=== PATIENT | male | born 2000 | race Caucasian/White ===

== ENCOUNTER 2025-08-27 10:45 | Emergency (ER) | payer MEDICAID ==
[~2025-08-27] VITALS: Ht 188 cm; Wt 116.0 kg
[2025-08-27 10:58] VITALS: BP 150/89; PULSE 100; TEMP 98.2; O2SAT 98
[2025-08-27] MEDS ORDERED: ketorolac trometh 15mg/ml vial 15 MG/ML ML IM ONE (12:50)
[2025-08-27] MEDS: ketorolac trometh 30MG/ML vial 30 MG/ML VIAL IM ONE (13:01)
[2025-08-27] MEDS ORDERED: CYCL-1 PO (13:19)
--- NOTE | 2025-08-27 13:20 | Physician Documentation ---
History of Present Illness ~ Chief Complaint: Back Pain Stated Complaint: BACK PAIN Time Seen by MD: 11:22 HPI Patient is a very pleasant 25-year-old male that presents to the emergency department for evaluation of 2 days of low back pain. Patient reports he was sleeping a woke up with back pain. Patient reports pain in his lower back bilaterally with some radiation of pain down into his left buttock. Patient denies any incontinence of bowel or bladder any perineal numbness any numbness or tingling in his lower extremities or upper extremities this time. Patient denies fever chills nausea vomiting diarrhea at this time. Patient denies any other symptoms at this time. Medication Reconciliation Allergies: Coded Allergies: No Known Allergies (Unverified , 08/27/25) Review of Systems ROS As stated above in the HPI, otherwise all systems are reviewed and negative. Physical Exam Physical Exam Vital Signs: Temperature: 98.2, Source: Temporal, Heart Rate: 100, Respiratory Rate: 16, BP: 150/89, Pulse Oximetry: 98, Weight: 116.000 Oxygen Flow Rate: 0 Physical Exam VITALS: Reviewed and as above. GENERAL: Alert, no apparent distress. HEENT: Normocephalic, atraumatic, PERRL, EOMI, dry mucosa, no erythema RESPIRATORY: Lungs clear, normal breath sounds, no respiratory distress. CHEST: No accessory muscle use, no retractions CV: Regular rate, rhythm, no edema, no murmur, No: JVD GI: Soft, non-tender, bowels sounds present, no rebound, guarding, or rigidity BACK: No CVA tenderness, or swelling MUSCULOSKELETAL No deformities, no edema, pain with palpation to the lumbosacral region bilaterally, positive straight leg raise on the left side noted during examination. SKIN: Warm and dry, no rash NEURO: Oriented x4, No motor or sensory deficit PSYCH: Normal mood and affect, no agitation Progress Results/Orders Results/Orders Completed Orders - MARY SINGH Ketorolac Trometh 15mg/Ml Vial (Toradol (08/27/25 12:50) Acetaminophen 325mg Tablet (Tylenol Tabl (08/27/25 12:50) Ketorolac Trometh 30mg/Ml Vial (Toradol (08/27/25 12:50) Medications Received in ER Medications (Trade) Dose Ordered Sig/Rigo Route PRN Reason Start Time Stop Time Status Last Admin Dose Admin (Tylenol tablet) 975 mg ONCE ONCE PO 08/27/25 12:50 08/27/25 12:51 DC 08/27/25 13:01 975 MG (Toradol inj. 30mg/ml) 30 mg ONCE ONCE IM 08/27/25 12:50 08/27/25 12:51 DC 08/27/25 13:01 30 MG Vital Signs 08/27/25 08/27/25 10:58 13:01 Temp 98.2 Pulse 100 Resp 18 16 B/P (MAP) 150/89 Pulse Ox 98 O2 Flow Rate 0 Medical Decision Making Additional information obtaine: other Findings Chief Complaint: Low back pain History of Present Illness: A very pleasant 25-year-old male presented to the emergency department with a 2-day history of acute low back pain. The patient reported awakening from sleep with bilateral lower back pain and radiation into the left buttock. He denied any antecedent trauma, heavy lifting, or inciting event. Pertinent Positives and Negatives: The patient denied bowel or bladder incontinence, urinary retention, perineal numbness, saddle anesthesia, and numbness or tingling in the upper or lower extremities. He denied fever, chills, nausea, vomiting, diarrhea, and constitutional symptoms. No history of cancer, recent trauma, intravenous drug use, immunocompromise, or prolonged corticos teroid use was reported. Medical Decision Making: Number of Diagnoses/Management Options: Moderate complexity. The differential diagnosis included acute nonspecific low back pain, lumbar strain, and radiculopathy. Red flag symptoms for serious underlying pathology including cauda equina syndrome, epidural abscess, vertebral fracture, and malignancy were systematically evaluated and excluded based on history and physical examination. Amount/Complexity of Data: Minimal. No imaging was obtained as the patient lacked red flag findings that would warrant immediate diagnostic imaging. The absence of significant trauma, neurologic deficits, fever, or other concerning features made serious spinal pathology unlikely. Risk of Complications: Low. The patient presented with acute nonspecific low back pain without red flag findings, which carries a favorable prognosis with most patients experiencing substantial improvement within the first month. The patient was counseled regarding the generally benign natural history of acute low back pain and the high likelihood of spontaneous recovery. Treatment Plan and Rationale: The patient received 30 mg of ketorolac (an NSAID) and 1 g of acetaminophen in the emergency department for symptomatic pain relief. The [employer] recommends NSAIDs or skeletal muscle relaxants as first-line pharmacologic treatment for acute low back pain, with moderate-quality evidence supporting their use. NSAIDs provide small improvements in pain intensity and function for acute low back pain. The patient was prescribed a short course of cyclobenzaprine to be taken at bedtime. Skeletal muscle relaxants demonstrate moderate-quality evidence for small improvements in pain relief in acute low back pain. Cyclobenzaprine is indicated as an adjunct to rest and physical therapy for relief of muscle spasm associated with acute, painful musculoskeletal conditions, with recommended use limited to 2-3 weeks. Patient Education: The patient was educated about the favorable prognosis of acu te low back pain and advised to remain as active as tolerated. He was counseled to avoid prolonged bed rest and to continue or gradually resume normal activities. The patient was informed about the use of superficial heat therapy at home, which has moderate-quality evidence for improving pain and function in acute low back pain. Follow-up and Return Precautions: The patient was instructed to follow up with his primary care provider for ongoing management and reassessment. He was given explicit return precautions to return to the emergency department immediately if he develops any of the following red flag symptoms: new bowel or bladder incontinence or urinary retention, saddle anesthesia, progressive lower extremity weakness, numbness or tingling in the extremities, fever, or significant worsening of pain despite treatment. Assessment: Acute nonspecific low back pain without red flag findings. Disposition: Discharged home in stable condition with prescriptions and appropriate follow-up arranged. Differential Dx:Considerations: Other Departure Disposition: 01 HOME / SELF CARE / HOMELESS Impression: Primary Impression: Back problem Additional Impressions: Strain of lumbar region Sciatica Condition: Stable Discharge Instructions: Sciatica, Lumbosacral Strain, Acute Back Pain, Adult Additional Instructions: Your Diagnosis You were seen in the emergency department for low back pain. Your examination and symptoms do not show signs of any serious medical condition. Most people with low back pain like yours improve significantly within the first month, and many feel much better within 2-3 weeks. What You Can Do at Home Stay Active Do not stay in bed. Bed rest can actually slow your recovery. Continue your normal daily activities as much as you can tolerate, even if you have some pain. It is normal to have some discomfort when moving, but staying active helps you heal faster. Gradually increase your activity level as you feel better. Heat Therapy Apply a heating pad or hot pack to your lower back for 15-20 minutes at a time. Heat therapy can help reduce pain and improve function. Be careful not to burn your skinuse a towel between the heat source and your skin if needed. Your Medications You received the following medications in the emergency department: Toradol (ketorolac): A pain reliever that reduces inflammation Tylenol (acetaminophen): A pain reliever You have been prescribed: Flexeril (cyclobenzaprine): A muscle relaxant to help with muscle spasm and pain Take this medication at bedtime as directed This medication may cause drowsinessdo not drive or operate machinery while taking it Use only for a short period (typically 2-3 weeks) [id number] pain relievers like ibuprofen (Advil, Motrin) or naproxen (Aleve) can help with pain if needed. Follow the package directions and do not exceed recommended doses. What to Avoid Prolonged bed rest Letting fear of pain stop you from moving and doing your normal activities Taking more medication than prescribed When to Seek Medical Care Return to the emergency department immediately if you develop any of these warning signs: Loss of bowel or bladder control (cannot control when you urinate or have a bowel movement) Numbness in your groin, buttocks, or genital area New weakness in your legs Numbness or tingling that spreads down both legs Fever (temperature over 100.4F or 38C) Severe pain that gets much worse despite taking your medications Follow up with your primary care doctor if: Your pain is not improving after 2 weeks Your pain is getting worse You have any concerns about your recovery What to Expect Your pain should gradually improve over the next few weeks Some discomfort with activity is normal and does not mean you are causing harm Staying active and using heat therapy are among the most effective ways to help yourself recover If your pain continues beyond 8 weeks, your doctor may recommend additional treatments such as physical therapy or exercise programs Referrals: NO PRIMARY CARE PROVIDER (PCP) Prescriptions Cyclobenzaprine* (Cyclobenzaprine*) 10 Mg Tablet 1 TAB PO HS for 7 Days, #7 TAB Prov: MARY SINGH 08/27/25 Education Educated: Patient Educated regarding: diagnosis, treatment, need for follow up Signature Scribe Signature: A Attestation: Scribed for Mary Singh by DAVID Allen . 08/27/25 13:20 MARY SINGH Aug 27, 2025 13:20
[2025-08-27 13:44] VITALS: RESP 16
== END 2025-08-27 13:51 | disposition home or self-care (01) ==
LOC: ER 10:46
DX: S39.012A Strain of muscle, fascia and tendon of lower back, initial encounter (principal); X58.XXXA Exposure to other specified factors, initial encounter; Y93.89 Activity, other specified; Y92.89 Other specified places as the place of occurrence of the external cause; Y99.8 Other external cause status
CPT/HCPCS: 96372; 99283; J1885